=== PATIENT | female | born 1955 | race Caucasian/White ===

== ENCOUNTER 2022-04-04 15:17 | Inpatient (IN) ==
[2022-04-04] MEDS ORDERED: Al Hydrox/Mg Hydrox/Simet LIQ 30 ML UDC PO PRN (19:31)
[2022-04-05] MEDS: Vitamin THERAPEUTIC TAB PO SCH (12:02)
[2022-04-06] MEDS: Vitamin THERAPEUTIC TAB PO SCH (10:11)
[2022-04-16] MEDS: Paliperidone SUSTENNA 234 MG/1.5 ML IM ONE ×2 (12:58→14:32)
[2022-04-17] MEDS ORDERED: Paliperidone SUSTENNA 156 MG/1 ML IM ONE (09:45)
[2022-04-19] MEDS ORDERED: Paliperidone SUSTENNA 156 MG/1 ML IM ONE (09:00)
[2022-05-10] MEDS ORDERED: Paliperidone SUSTENNA 156 MG/1 ML IM ONE ×2 (09:00)
[2022-06-07] MEDS ORDERED: Paliperidone SUSTENNA 117 MG/0.75 ML IM ONE (09:00)
== END 2022-05-10 11:05 | disposition home or self-care (01) | DRG 751 ==
LOC: BSU 19:28
PROVIDERS: ADMIT Psychiatry & Neurology Psychiatry; ATTEND Psychiatry & Neurology Psychiatry